=== PATIENT | female | born 1950 | race Caucasian/White ===

== ENCOUNTER 2021-04-27 10:23 | Inpatient (IN) ==
[2021-04-27] MEDS ORDERED: Albuterol 2.5 MG/3 ML NEBULIZER IH ONE (11:06)
[2021-04-27] MEDS ORDERED: methylPREDNISolone 125 MG/2 ML VIAL IVP ONE (11:06)
[2021-04-27] MEDS ORDERED: Ipratropium/Albuterol Neb 3 ML IH ONE (11:06)
[2021-04-27] MEDS ORDERED: 0.9 % Sodium Chloride 1,000 ML IV ONE (11:13)
[2021-04-27] MEDS ORDERED: levoFLOXacin 750 MG/150 ML 750 MG/150 ML BAG IVPB SCH (11:15)
[2021-04-27 11:49] LABS: ABG Base Excess 5 mEq/L (-2 to 3); ABG HCO3 36 mEq/L (21-27); ABG Oxygen Saturation 93 % (95-98); ABG PCO2 83 mmHg (35-45); ABG PH 7.25 pH Units (7.32-7.45); ABG PO2 81 mmHg (85-104); ABG TCO2 39 mEq/L (20-26)
[2021-04-27 11:57] LABS: Basophils # 0.1 K/mcL (0.0-0.2); Basophils % 0.6 %; Eosinophils # 0.2 K/mcL (0.0-0.6); Eosinophils % 2.3 %; Hematocrit 49.3 % (35.3-44.9); Hemoglobin 15.2 g/dL (11.5-15.4); Immature Granulocytes % 0.5 % (0-4); Lymphocytes # 1.5 K/mcL (0.6-4.6); Lymphocytes % 14.6 %; Mean Corpuscular HGB Conc 30.8 g/dL (31.6-35.5); Mean Corpuscular Hemoglobin 27.9 pg (28.0-33.3); Mean Corpuscular Volume 90.6 fL (83.0-100.0); Mean Platelet Volume 10.1 fL (9.4-12.4); Monocytes # 0.8 K/mcL (0.0-1.3); Monocytes % 7.8 %; Neutrophils # 7.9 K/mcL (1.6-8.9); Platelet Count 281 K/mcL (140-400); Red Blood Count 5.44 M/mcL (3.82-4.97); Red Cell Distribution Width 17.2 % (11.5-14.5); Segmented Neutrophils % 74.2 %; White Blood Count 10.6 K/mcL (4.3-11.1)
[2021-04-27] MEDS ORDERED: *HR* Succinylcholine 200 MG/10 ML VIAL IVP ONE (12:08)
[2021-04-27] MEDS ORDERED: *HR* Etomidate 20 MG/10 ML AMPUL IVP ONE (12:08)
[2021-04-27 12:11] LABS: INR 1.1; Prothrombin Time 12.1 Seconds (9.4-12.1)
[2021-04-27 12:13] LABS: Influenza A PCR Negative (Negative); Influenza B PCR Negative (Negative); Resp. Syncytial Virus PCR Negative (Negative); SARS-CoV-2 by PCR (In House) Negative (Negative)
[2021-04-27 12:14] LABS: Activated Partial Thrombo Time 36.9 Seconds (26.0-36.0)
[2021-04-27 12:25] LABS: Troponin I < 0.03 ng/mL (< 0.04)
[2021-04-27 13:04] LABS: Alanine Aminotransferase 11 Units/L (7-52); Albumin 3.7 g/dL (3.5-5.7); Albumin/Globulin Ratio 1.2 (1.1-2.2); Alkaline Phosphatase 75 Units/L (34-104); Aspartate Amino Transferase 12 Units/L (13-39); BUN/Creatinine Ratio 12 (6-26); Bilirubin,Direct 0.1 mg/dL (0.0-0.2); Bilirubin,Indirect 0.2 mg/dL (0.0-1.0); Bilirubin,Total 0.3 mg/dL (0.3-1.0); Blood Urea Nitrogen 18 mg/dL (8-23); Calcium 8.9 mg/dL (8.6-10.3); Carbon Dioxide 33 mEq/L (23-29); Chloride 90 mEq/L (98-107); Glucose 142 mg/dL (70-105); Osmolality,Calculated 282 (280-300); Potassium 3.7 mEq/L (3.5-5.1); Sodium 134 mEq/L (136-145); Total Protein 6.7 g/dL (6.4-8.9); eGFR For African Americans 43 (> 60); eGFR For Non-African Americans 35 (> 60)
[2021-04-27 13:43] LABS: ABG Base Excess 4 mEq/L (-2 to 3); ABG HCO3 35 mEq/L (21-27); ABG Oxygen Saturation 93 % (95-98); ABG PCO2 88 mmHg (35-45); ABG PH 7.21 pH Units (7.32-7.45); ABG PO2 88 mmHg (85-104); ABG TCO2 38 mEq/L (20-26); Blood Gas VT 300 cc
[2021-04-27 14:39] LABS: ABG Base Excess 7 mEq/L (-2 to 3); ABG HCO3 39 mEq/L (21-27); ABG Oxygen Saturation 88 % (95-98); ABG PCO2 99 mmHg (35-45); ABG PH 7.21 pH Units (7.32-7.45); ABG PO2 70 mmHg (85-104); ABG TCO2 42 mEq/L (20-26)
[2021-04-27] MEDS ORDERED: Albuterol Neb 7.5 MG, Sodium Chloride for inhalation 12 ML IH ONE (14:51)
[2021-04-27] MEDS ORDERED: Furosemide 40 MG/4 ML VIAL IVP ONE (15:57)
[2021-04-27] MEDS: FentaNYL (PF) 1,000 MCG/100 ML IV.SOLN IVC SCH (16:55)
[2021-04-27] MEDS ORDERED: Naloxone 0.4 MG/ML INJ IVP PRN (17:00)
[2021-04-27] MEDS ORDERED: Perflutren Lipid Microsphere 1.3 ML in 0.9 % Sodium Chloride 8.7 ML IVP PRN (17:16)
[2021-04-27] MEDS ORDERED: Dextrose Gel 15 GM/37.5 ML TUBE PO PRN ×2 (18:13)
[2021-04-27] MEDS ORDERED: *HR* Dextrose 50 % in Water (Syg) 50 ML SYRINGE IVP PRN (18:13)
[2021-04-27] MEDS ORDERED: D5% in Water 1,000 ML IVC PRN (18:16)
[2021-04-27] MEDS: Ipratropium/Albuterol Neb 3 ML IH SCH ×2 (20:02→23:57)
[2021-04-27] MEDS: Budesonide/Formoterol 160/4.5 1 PUFF INH IH SCH (20:05)
[2021-04-27] MEDS ORDERED: *HR* Midazolam HCl 2 MG/2 ML VIAL IVP ONE (20:05)
[2021-04-27] MEDS: Dexmedetomidine HCl 400 MCG/100 ML MLS IVC SCH (23:07)
[2021-04-27] MEDS: Artificial Tears SOLN 15 ML BOTTLE BOTH EYES SCH ×2 (23:09→23:24)
[2021-04-27] MEDS: Chlorhexidine Rinse 15 ML MOUTHWASH MM SCH (23:09)
[2021-04-27] MEDS: Pantoprazole 40 MG VIAL IVP SCH (23:09)
[2021-04-27] MEDS: Insulin LISPRO 300 UNITS/3 ML VIAL SUBQ SCH (23:10)
[2021-04-27] MEDS: MethylPREDNISolone 40 MG/ML VIAL IVP SCH (23:10)
[2021-04-27 23:20] LABS: ABG Base Excess 6 mEq/L (-2 to 3); ABG HCO3 36 mEq/L (21-27); ABG Oxygen Saturation 93 % (95-98); ABG PCO2 79 mmHg (35-45); ABG PH 7.27 pH Units (7.32-7.45); ABG PO2 82 mmHg (85-104); ABG TCO2 39 mEq/L (20-26); Blood Gas Modality AF; Blood Gas VT 430 cc
[2021-04-28] MEDS: FentaNYL (PF) 1,000 MCG/100 ML IV.SOLN IVC SCH (02:34)
[2021-04-28 03:02] LABS: ABG Base Excess 7 mEq/L (-2 to 3); ABG HCO3 37 mEq/L (21-27); ABG Oxygen Saturation 100 % (95-98); ABG PCO2 75 mmHg (35-45); ABG PO2 301 mmHg (85-104); ABG TCO2 40 mEq/L (20-26)
[2021-04-28] MEDS: Ipratropium/Albuterol Neb 3 ML IH SCH ×6 (03:50→23:16)
[2021-04-28] MEDS: Artificial Tears SOLN 15 ML BOTTLE BOTH EYES SCH ×5 (04:00→20:01)
[2021-04-28 04:56] LABS: ABG Base Excess 4 mEq/L (-2 to 3); ABG HCO3 32 mEq/L (21-27); ABG Oxygen Saturation 94 % (95-98); ABG PCO2 61 mmHg (35-45); ABG PH 7.33 pH Units (7.32-7.45); ABG PO2 77 mmHg (85-104); ABG TCO2 34 mEq/L (20-26); Blood Gas Modality ASSIST CONTROL; Blood Gas VT 430 cc
[2021-04-28 05:08] LABS: Basophils % 0.1 %; Hematocrit 42.2 % (35.3-44.9); Hemoglobin 13.2 g/dL (11.5-15.4); Immature Granulocytes % 0.7 % (0-4); Lymphocytes # 0.9 K/mcL (0.6-4.6); Lymphocytes % 11.5 %; Mean Corpuscular HGB Conc 31.3 g/dL (31.6-35.5); Mean Corpuscular Hemoglobin 27.6 pg (28.0-33.3); Mean Corpuscular Volume 88.1 fL (83.0-100.0); Mean Platelet Volume 10.3 fL (9.4-12.4); Monocytes # 0.3 K/mcL (0.0-1.3); Monocytes % 3.2 %; Neutrophils # 6.8 K/mcL (1.6-8.9); Platelet Count 287 K/mcL (140-400); Red Blood Count 4.79 M/mcL (3.82-4.97); Red Cell Distribution Width 17.2 % (11.5-14.5); Segmented Neutrophils % 84.5 %
[2021-04-28 05:10] LABS: INR 1.1; Prothrombin Time 12.8 Seconds (9.4-12.1)
[2021-04-28 05:24] LABS: Albumin 3.3 g/dL (3.5-5.7); Albumin/Globulin Ratio 1.1 (1.1-2.2); Bilirubin,Total 0.3 mg/dL (0.3-1.0); Calcium 7.9 mg/dL (8.6-10.3); Globulin 2.9 g/dL (2.4-3.5); Phosphorous 5.9 mg/dL (2.7-4.5); Potassium 4.3 mEq/L (3.5-5.1); Total Protein 6.2 g/dL (6.4-8.9)
[2021-04-28] MEDS ORDERED: *HR* Enoxaparin 40 MG/0.4 ML SYRINGE SQ SCH (06:00)
[2021-04-28] MEDS: Insulin LISPRO 300 UNITS/3 ML VIAL SUBQ SCH ×3 (06:54→16:12)
[2021-04-28] MEDS: MethylPREDNISolone 40 MG/ML VIAL IVP SCH ×2 (07:31→16:03)
[2021-04-28] MEDS: Pantoprazole 40 MG VIAL IVP SCH (07:31)
[2021-04-28] MEDS: Chlorhexidine Rinse 15 ML MOUTHWASH MM SCH ×2 (07:31→20:00)
[2021-04-28] MEDS: Budesonide/Formoterol 160/4.5 1 PUFF INH IH SCH ×2 (08:13→20:29)
[2021-04-28] MEDS ORDERED: Furosemide 40 MG/4 ML VIAL IVP SCH (09:00)
[2021-04-28] MEDS: Dexmedetomidine HCl 400 MCG/100 ML MLS IVC SCH ×2 (10:06→21:26)
[2021-04-28] MEDS: Calcium Gluconate 1gm/50mL 1 GM/50 ML BAG IVPB SCH ×3 (17:21→20:01)
[2021-04-28] MEDS ORDERED: Nicotine 21 MG PATCH.TD24 TD SCH (21:15)
[2021-04-28] MEDS: *HR* Heparin 5,000 UNIT/ML VIAL SQ SCH (21:34)
[2021-04-29] MEDS: MethylPREDNISolone 40 MG/ML VIAL IVP SCH ×2 (00:02→16:56)
[2021-04-29] MEDS: Artificial Tears SOLN 15 ML BOTTLE BOTH EYES SCH ×2 (00:12→03:22)
[2021-04-29] MEDS: Insulin LISPRO 300 UNITS/3 ML VIAL SUBQ SCH ×4 (03:19→19:13)
[2021-04-29] MEDS: Ipratropium/Albuterol Neb 3 ML IH SCH ×5 (03:36→23:43)
[2021-04-29 04:25] LABS: Basophils % 0.1 %; Eosinophils % 0.1 %; Hematocrit 40.3 % (35.3-44.9); Hemoglobin 13.1 g/dL (11.5-15.4); Immature Granulocytes % 0.5 % (0-4); Lymphocytes % 10.2 %; Mean Corpuscular HGB Conc 32.5 g/dL (31.6-35.5); Mean Corpuscular Hemoglobin 28.4 pg (28.0-33.3); Mean Corpuscular Volume 87.2 fL (83.0-100.0); Monocytes # 0.4 K/mcL (0.0-1.3); Monocytes % 3.8 %; Neutrophils # 8.2 K/mcL (1.6-8.9); Platelet Count 314 K/mcL (140-400); Red Blood Count 4.62 M/mcL (3.82-4.97); Red Cell Distribution Width 17.3 % (11.5-14.5); Segmented Neutrophils % 85.3 %; White Blood Count 9.6 K/mcL (4.3-11.1)
[2021-04-29 04:32] LABS: VBG Ionized Calcium 1.14 mmol/L (1.15-1.35)
[2021-04-29] MEDS: *HR* Heparin 5,000 UNIT/ML VIAL SQ SCH ×3 (05:33→20:07)
[2021-04-29 05:56] LABS: Albumin 3.4 g/dL (3.5-5.7); Bilirubin,Total 0.3 mg/dL (0.3-1.0); Calcium 8.8 mg/dL (8.6-10.3); Magnesium 2.1 mg/dL (1.6-2.6); Potassium 4.2 mEq/L (3.5-5.1)
[2021-04-29] MEDS ORDERED: *HR* Enoxaparin 30 MG/0.3 ML SYRINGE SQ SCH (06:00)
[2021-04-29 06:13] LABS: Albumin/Globulin Ratio 1.2 (1.1-2.2); Globulin 2.8 g/dL (2.4-3.5); Total Protein 6.2 g/dL (6.4-8.9)
[2021-04-29] MEDS ORDERED: Perflutren Lipid Microsphere 1.3 ML in 0.9 % Sodium Chloride 8.7 ML IVP PRN ×2 (06:41→09:43)
[2021-04-29] MEDS ORDERED: D5% in Water 1,000 ML IVC PRN ×2 (06:41→09:43)
[2021-04-29] MEDS ORDERED: *HR* Dextrose 50 % in Water (Syg) 50 ML SYRINGE IVP PRN ×2 (06:41→09:43)
[2021-04-29] MEDS ORDERED: Dextrose Gel 15 GM/37.5 ML TUBE PO PRN ×4 (06:41→09:43)
[2021-04-29] MEDS ORDERED: Naloxone 0.4 MG/ML INJ IVP PRN ×2 (06:41→09:43)
[2021-04-29] MEDS ORDERED: MethylPREDNISolone 40 MG/ML VIAL IVP SCH (08:00)
[2021-04-29] MEDS ORDERED: Ipratropium/Albuterol Neb 3 ML IH SCH (08:00)
[2021-04-29] MEDS ORDERED: Pantoprazole 40 MG VIAL IVP SCH (09:00)
[2021-04-29] MEDS ORDERED: levoFLOXacin 750 MG/150 ML 750 MG/150 ML BAG IVPB SCH (09:00)
[2021-04-29] MEDS ORDERED: Budesonide/Formoterol 160/4.5 1 PUFF INH IH SCH (10:00)
[2021-04-29] MEDS: Budesonide/Formoterol 160/4.5 1 PUFF INH IH SCH ×2 (10:20→20:33)
[2021-04-29] MEDS ORDERED: Insulin LISPRO 300 UNITS/3 ML VIAL SUBQ SCH (12:00)
[2021-04-29] MEDS ORDERED: *HR* Heparin 5,000 UNIT/ML VIAL SQ SCH (14:00)
[2021-04-29] MEDS ORDERED: NON-FORMULARY MEDICATION 1 EACH EACH (Losartan Potassium [Cozaar] 100 MG Tablet) PO SCH (16:25)
[2021-04-29] MEDS ORDERED: Pregabalin 75 MG CAPSULE PO ONE (16:30)
[2021-04-29] MEDS ORDERED: amLODIPine 5 MG TABLET PO SCH (16:30)
[2021-04-29] MEDS: amLODIPine 5 MG TABLET PO SCH (16:56)
[2021-04-29] MEDS: Nicotine 21 MG PATCH.TD24 TD SCH (20:02)
[2021-04-29] MEDS: Pregabalin 75 MG CAPSULE PO SCH (20:02)
[2021-04-29] MEDS ORDERED: Nicotine 21 MG PATCH.TD24 TD SCH (21:00)
[2021-04-30] MEDS: MethylPREDNISolone 40 MG/ML VIAL IVP SCH ×3 (00:10→18:31)
[2021-04-30] MEDS: Insulin LISPRO 300 UNITS/3 ML VIAL SUBQ SCH ×5 (00:12→23:54)
[2021-04-30 00:52] LABS: Basophils % 0.3 %; Eosinophils % 0.1 %; Hematocrit 43.1 % (35.3-44.9); Hemoglobin 13.9 g/dL (11.5-15.4); Immature Granulocytes % 0.5 % (0-4); Lymphocytes # 2.4 K/mcL (0.6-4.6); Lymphocytes % 21.7 %; Mean Corpuscular HGB Conc 32.3 g/dL (31.6-35.5); Mean Corpuscular Volume 86.7 fL (83.0-100.0); Mean Platelet Volume 10.1 fL (9.4-12.4); Monocytes % 8.9 %; Neutrophils # 7.6 K/mcL (1.6-8.9); Platelet Count 349 K/mcL (140-400); Red Blood Count 4.97 M/mcL (3.82-4.97); Red Cell Distribution Width 17.1 % (11.5-14.5); Segmented Neutrophils % 68.5 %
[2021-04-30 00:54] LABS: VBG Ionized Calcium 1.09 mmol/L (1.15-1.35)
[2021-04-30 01:15] LABS: Alanine Aminotransferase 15 Units/L (7-52); Albumin 3.4 g/dL (3.5-5.7); Albumin/Globulin Ratio 1.1 (1.1-2.2); Alkaline Phosphatase 60 Units/L (34-104); Aspartate Amino Transferase 20 Units/L (13-39); BUN/Creatinine Ratio 48 (6-26); Bilirubin,Total 0.4 mg/dL (0.3-1.0); Blood Urea Nitrogen 36 mg/dL (8-23); Calcium 8.9 mg/dL (8.6-10.3); Carbon Dioxide 34 mEq/L (23-29); Chloride 90 mEq/L (98-107); Globulin 3.1 g/dL (2.4-3.5); Glucose 127 mg/dL (70-105); Magnesium 1.7 mg/dL (1.6-2.6); Osmolality,Calculated 282 (280-300); Phosphorous 2.8 mg/dL (2.7-4.5); Potassium 4.6 mEq/L (3.5-5.1); Sodium 131 mEq/L (136-145); Total Protein 6.5 g/dL (6.4-8.9); eGFR For African Americans > 60 (> 60); eGFR For Non-African Americans > 60 (> 60)
[2021-04-30] MEDS: Ipratropium/Albuterol Neb 3 ML IH SCH ×2 (04:03→07:38)
[2021-04-30] MEDS: *HR* Heparin 5,000 UNIT/ML VIAL SQ SCH ×3 (05:29→20:46)
[2021-04-30] MEDS: Budesonide/Formoterol 160/4.5 1 PUFF INH IH SCH ×2 (07:38→20:30)
[2021-04-30] MEDS: Pantoprazole 40 MG VIAL IVP SCH (08:09)
[2021-04-30] MEDS: amLODIPine 5 MG TABLET PO SCH (08:09)
[2021-04-30] MEDS: Pregabalin 75 MG CAPSULE PO SCH ×3 (08:09→20:46)
[2021-04-30] MEDS ORDERED: Metoprolol XL (24 HR) Succ 50 MG TAB.ER.24H PO SCH (10:15)
[2021-04-30] MEDS: polyethylene glycoL 3350 17 GM POWD.PACK PO SCH (11:13)
[2021-04-30] MEDS: risperiDONE 1 MG TABLET PO SCH (11:14)
[2021-04-30] MEDS: Venlafaxine XR (24 HR) 150 MG CAP.ER.24H PO SCH (11:14)
[2021-04-30] MEDS: rOPINIRole 0.25 MG TABLET PO SCH (11:15)
[2021-04-30] MEDS: Furosemide 20 MG TABLET PO SCH (11:15)
[2021-04-30] MEDS: Aspirin 81 MG TAB.CHEW PO SCH (11:15)
[2021-04-30] MEDS: Levalbuterol Neb 1.25 MG/3 ML IH SCH (20:30)
[2021-04-30] MEDS: Nicotine 21 MG PATCH.TD24 TD SCH (20:44)
[2021-05-01 02:36] LABS: Basophils % 0.2 %; Eosinophils % 0.3 %; Hematocrit 44.4 % (35.3-44.9); Hemoglobin 14.8 g/dL (11.5-15.4); Immature Granulocytes % 0.8 % (0-4); Lymphocytes # 1.5 K/mcL (0.6-4.6); Mean Corpuscular HGB Conc 33.3 g/dL (31.6-35.5); Mean Corpuscular Hemoglobin 28.8 pg (28.0-33.3); Mean Corpuscular Volume 86.5 fL (83.0-100.0); Mean Platelet Volume 10.4 fL (9.4-12.4); Monocytes # 0.8 K/mcL (0.0-1.3); Neutrophils # 7.1 K/mcL (1.6-8.9); Platelet Count 397 K/mcL (140-400); Red Blood Count 5.13 M/mcL (3.82-4.97); Red Cell Distribution Width 16.7 % (11.5-14.5); Segmented Neutrophils % 74.7 %; White Blood Count 9.5 K/mcL (4.3-11.1)
[2021-05-01 02:44] LABS: VBG Ionized Calcium 1.18 mmol/L (1.15-1.35)
[2021-05-01 03:01] LABS: Alanine Aminotransferase 16 Units/L (7-52); Albumin 3.7 g/dL (3.5-5.7); Albumin/Globulin Ratio 1.2 (1.1-2.2); Alkaline Phosphatase 64 Units/L (34-104); Aspartate Amino Transferase 16 Units/L (13-39); BUN/Creatinine Ratio 38 (6-26); Bilirubin,Total 0.4 mg/dL (0.3-1.0); Blood Urea Nitrogen 27 mg/dL (8-23); Calcium 9.4 mg/dL (8.6-10.3); Carbon Dioxide 36 mEq/L (23-29); Chloride 87 mEq/L (98-107); Glucose 221 mg/dL (70-105); Magnesium 1.3 mg/dL (1.6-2.6); Osmolality,Calculated 280 (280-300); Phosphorous 2.5 mg/dL (2.7-4.5); Potassium 4.9 mEq/L (3.5-5.1); Sodium 129 mEq/L (136-145); Total Protein 6.7 g/dL (6.4-8.9); eGFR For African Americans > 60 (> 60); eGFR For Non-African Americans > 60 (> 60)
[2021-05-01] MEDS: *HR* Heparin 5,000 UNIT/ML VIAL SQ SCH ×3 (06:37→21:34)
[2021-05-01] MEDS: MethylPREDNISolone 40 MG/ML VIAL IVP SCH ×2 (06:37→16:33)
[2021-05-01] MEDS: Insulin LISPRO 300 UNITS/3 ML VIAL SUBQ SCH ×4 (06:38→23:30)
[2021-05-01] MEDS: polyethylene glycoL 3350 17 GM POWD.PACK PO SCH (08:23)
[2021-05-01] MEDS: rOPINIRole 0.25 MG TABLET PO SCH (08:25)
[2021-05-01] MEDS: Venlafaxine XR (24 HR) 150 MG CAP.ER.24H PO SCH (08:25)
[2021-05-01] MEDS: amLODIPine 5 MG TABLET PO SCH (08:25)
[2021-05-01] MEDS: Metoprolol XL (24 HR) Succ 50 MG TAB.ER.24H PO SCH (08:25)
[2021-05-01] MEDS: Pantoprazole 40 MG VIAL IVP SCH (08:25)
[2021-05-01] MEDS: Aspirin 81 MG TAB.CHEW PO SCH (08:26)
[2021-05-01] MEDS: Furosemide 20 MG TABLET PO SCH (08:26)
[2021-05-01] MEDS: risperiDONE 1 MG TABLET PO SCH (08:26)
[2021-05-01] MEDS: Pregabalin 75 MG CAPSULE PO SCH ×3 (08:26→21:34)
[2021-05-01] MEDS ORDERED: hydroCHLOROthiazide 25 MG TABLET PO SCH (09:00)
[2021-05-01] MEDS: Levalbuterol Neb 1.25 MG/3 ML IH SCH ×2 (10:28→19:54)
[2021-05-01] MEDS: Budesonide/Formoterol 160/4.5 1 PUFF INH IH SCH ×2 (10:29→19:54)
[2021-05-01] MEDS: Nicotine 21 MG PATCH.TD24 TD SCH (21:34)
[2021-05-02] MEDS: MethylPREDNISolone 40 MG/ML VIAL IVP SCH (05:09)
[2021-05-02] MEDS: *HR* Heparin 5,000 UNIT/ML VIAL SQ SCH ×3 (05:09→20:46)
[2021-05-02 06:43] LABS: Basophils % 0.3 %; Eosinophils % 0.3 %; Hematocrit 44.3 % (35.3-44.9); Hemoglobin 14.5 g/dL (11.5-15.4); Immature Granulocytes % 1.1 % (0-4); Lymphocytes # 2.3 K/mcL (0.6-4.6); Lymphocytes % 20.2 %; Mean Corpuscular HGB Conc 32.7 g/dL (31.6-35.5); Mean Corpuscular Hemoglobin 28.5 pg (28.0-33.3); Mean Corpuscular Volume 87.2 fL (83.0-100.0); Mean Platelet Volume 10.1 fL (9.4-12.4); Monocytes # 0.8 K/mcL (0.0-1.3); Neutrophils # 8.2 K/mcL (1.6-8.9); Platelet Count 374 K/mcL (140-400); Red Blood Count 5.08 M/mcL (3.82-4.97); Red Cell Distribution Width 16.6 % (11.5-14.5); Segmented Neutrophils % 71.1 %; White Blood Count 11.5 K/mcL (4.3-11.1)
[2021-05-02] MEDS: Insulin LISPRO 300 UNITS/3 ML VIAL SUBQ SCH ×4 (07:18→20:58)
[2021-05-02 07:22] LABS: VBG Ionized Calcium 1.16 mmol/L (1.15-1.35)
[2021-05-02] MEDS: Pantoprazole 40 MG VIAL IVP SCH (07:35)
[2021-05-02] MEDS: Venlafaxine XR (24 HR) 150 MG CAP.ER.24H PO SCH (07:35)
[2021-05-02] MEDS: polyethylene glycoL 3350 17 GM POWD.PACK PO SCH (07:35)
[2021-05-02] MEDS: Furosemide 20 MG TABLET PO SCH (07:36)
[2021-05-02] MEDS: Aspirin 81 MG TAB.CHEW PO SCH (07:36)
[2021-05-02] MEDS: rOPINIRole 0.25 MG TABLET PO SCH (07:36)
[2021-05-02] MEDS: amLODIPine 5 MG TABLET PO SCH (07:36)
[2021-05-02] MEDS: Metoprolol XL (24 HR) Succ 50 MG TAB.ER.24H PO SCH (07:37)
[2021-05-02] MEDS: risperiDONE 1 MG TABLET PO SCH (07:37)
[2021-05-02] MEDS: Pregabalin 75 MG CAPSULE PO SCH ×3 (07:37→20:45)
[2021-05-02] MEDS: Budesonide/Formoterol 160/4.5 1 PUFF INH IH SCH ×2 (07:39→22:37)
[2021-05-02] MEDS: Levalbuterol Neb 1.25 MG/3 ML IH SCH ×2 (07:39→22:37)
[2021-05-02 11:35] LABS: Alanine Aminotransferase 20 Units/L (7-52); Albumin 3.5 g/dL (3.5-5.7); Albumin/Globulin Ratio 1.3 (1.1-2.2); Alkaline Phosphatase 59 Units/L (34-104); Aspartate Amino Transferase 20 Units/L (13-39); BUN/Creatinine Ratio 40 (6-26); Bilirubin,Total 0.5 mg/dL (0.3-1.0); Blood Urea Nitrogen 25 mg/dL (8-23); Carbon Dioxide 33 mEq/L (23-29); Chloride 92 mEq/L (98-107); Globulin 2.8 g/dL (2.4-3.5); Glucose 111 mg/dL (70-105); Magnesium 1.6 mg/dL (1.6-2.6); Osmolality,Calculated 277 (280-300); Phosphorous 4.3 mg/dL (2.7-4.5); Potassium 4.8 mEq/L (3.5-5.1); Sodium 131 mEq/L (136-145); Total Protein 6.3 g/dL (6.4-8.9); eGFR For African Americans > 60 (> 60); eGFR For Non-African Americans > 60 (> 60)
[2021-05-02] MEDS: Nicotine 21 MG PATCH.TD24 TD SCH (20:45)
[2021-05-02] MEDS: Insulin DETEMIR 100 UNIT/ML X5UNITS SUBQ SCH (20:50)
[2021-05-03] MEDS: *HR* Heparin 5,000 UNIT/ML VIAL SQ SCH ×3 (04:55→21:08)
[2021-05-03] MEDS: Insulin LISPRO 300 UNITS/3 ML VIAL SUBQ SCH ×4 (07:17→21:06)
[2021-05-03] MEDS: Budesonide/Formoterol 160/4.5 1 PUFF INH IH SCH ×2 (07:33→20:33)
[2021-05-03] MEDS: Levalbuterol Neb 1.25 MG/3 ML IH SCH ×2 (07:33→20:32)
[2021-05-03] MEDS: predniSONE 20 MG TABLET PO SCH (08:41)
[2021-05-03] MEDS: Metoprolol XL (24 HR) Succ 50 MG TAB.ER.24H PO SCH (08:41)
[2021-05-03] MEDS: amLODIPine 5 MG TABLET PO SCH (08:41)
[2021-05-03] MEDS: Venlafaxine XR (24 HR) 150 MG CAP.ER.24H PO SCH (08:41)
[2021-05-03] MEDS: rOPINIRole 0.25 MG TABLET PO SCH (08:41)
[2021-05-03] MEDS: Furosemide 20 MG TABLET PO SCH (08:41)
[2021-05-03] MEDS: Aspirin 81 MG TAB.CHEW PO SCH (08:41)
[2021-05-03] MEDS: Pregabalin 75 MG CAPSULE PO SCH ×3 (08:41→21:08)
[2021-05-03] MEDS: risperiDONE 1 MG TABLET PO SCH (08:41)
[2021-05-03] MEDS: polyethylene glycoL 3350 17 GM POWD.PACK PO SCH (08:42)
[2021-05-03] MEDS: Pantoprazole 40 MG VIAL IVP SCH (08:42)
[2021-05-03] MEDS: Insulin DETEMIR 100 UNIT/ML X5UNITS SUBQ SCH ×2 (08:45→21:07)
[2021-05-03] MEDS: Nicotine 21 MG PATCH.TD24 TD SCH (21:07)
[2021-05-04] MEDS: *HR* Heparin 5,000 UNIT/ML VIAL SQ SCH ×3 (05:49→21:08)
[2021-05-04] MEDS: Budesonide/Formoterol 160/4.5 1 PUFF INH IH SCH ×2 (07:38→20:30)
[2021-05-04] MEDS: Levalbuterol Neb 1.25 MG/3 ML IH SCH ×2 (07:38→20:31)
[2021-05-04] MEDS: polyethylene glycoL 3350 17 GM POWD.PACK PO SCH (09:15)
[2021-05-04] MEDS: Insulin DETEMIR 100 UNIT/ML X5UNITS SUBQ SCH ×2 (09:16→21:10)
[2021-05-04] MEDS: rOPINIRole 0.25 MG TABLET PO SCH (09:16)
[2021-05-04] MEDS: Furosemide 20 MG TABLET PO SCH (09:16)
[2021-05-04] MEDS: amLODIPine 5 MG TABLET PO SCH (09:17)
[2021-05-04] MEDS: risperiDONE 1 MG TABLET PO SCH (09:17)
[2021-05-04] MEDS: Metoprolol XL (24 HR) Succ 50 MG TAB.ER.24H PO SCH (09:17)
[2021-05-04] MEDS: Venlafaxine XR (24 HR) 150 MG CAP.ER.24H PO SCH (09:17)
[2021-05-04] MEDS: predniSONE 20 MG TABLET PO SCH (09:18)
[2021-05-04] MEDS: Aspirin 81 MG TAB.CHEW PO SCH (09:18)
[2021-05-04] MEDS: Pregabalin 75 MG CAPSULE PO SCH ×3 (09:18→21:10)
[2021-05-04] MEDS: Insulin LISPRO 300 UNITS/3 ML VIAL SUBQ SCH ×4 (09:18→21:08)
[2021-05-04 13:06] LABS: Adenovirus Not Detected (Not Detect); Bordetella Pertussis Not Detected (Not Detect); Chlamydophila pneumoniae Not Detected (Not Detect); Coronavirus 229E Not Detected (Not Detect); Coronavirus HKU1 Not Detected (Not Detect); Coronavirus NL63 Not Detected (Not Detect); Coronavirus OC43 DETECTED (Not Detect); Human Metapneumovirus Not Detected (Not Detect); Human Rhinovirus/Enterovirus Not Detected (Not Detect); Influenza A Subtype 2009 H1 Not Detected (Not Detect); Influenza B Not Detected (Not Detect); Mycoplasma pneumoniae Not Detected (Not Detect); Parainfluenza Virus 1 Not Detected (Not Detect); Parainfluenza Virus 2 Not Detected (Not Detect); Parainfluenza Virus 3 Not Detected (Not Detect); Parainfluenza Virus 4 Not Detected (Not Detect); Respiratory Syncytial Virus Not Detected (Not Detect); SARS-CoV-2 Not Detected (Not Detect)
[2021-05-04] MEDS: Nicotine 21 MG PATCH.TD24 TD SCH (21:09)
[2021-05-05] MEDS: *HR* Heparin 5,000 UNIT/ML VIAL SQ SCH ×2 (06:20→12:30)
[2021-05-05] MEDS: Budesonide/Formoterol 160/4.5 1 PUFF INH IH SCH (07:24)
[2021-05-05] MEDS: Levalbuterol Neb 1.25 MG/3 ML IH SCH (07:24)
[2021-05-05] MEDS: Insulin LISPRO 300 UNITS/3 ML VIAL SUBQ SCH ×2 (09:14→12:30)
[2021-05-05] MEDS: Aspirin 81 MG TAB.CHEW PO SCH (09:23)
[2021-05-05] MEDS: amLODIPine 5 MG TABLET PO SCH (09:23)
[2021-05-05] MEDS: Pregabalin 75 MG CAPSULE PO SCH (09:23)
[2021-05-05] MEDS: Furosemide 20 MG TABLET PO SCH (09:23)
[2021-05-05] MEDS: rOPINIRole 0.25 MG TABLET PO SCH (09:23)
[2021-05-05] MEDS: predniSONE 20 MG TABLET PO SCH (09:24)
[2021-05-05] MEDS: Metoprolol XL (24 HR) Succ 50 MG TAB.ER.24H PO SCH (09:24)
[2021-05-05] MEDS: Venlafaxine XR (24 HR) 150 MG CAP.ER.24H PO SCH (09:24)
[2021-05-05] MEDS: risperiDONE 1 MG TABLET PO SCH (09:24)
[2021-05-05] MEDS: polyethylene glycoL 3350 17 GM POWD.PACK PO SCH (09:24)
[2021-05-05] MEDS: Insulin DETEMIR 100 UNIT/ML X5UNITS SUBQ SCH (09:24)
[2021-05-05 11:37] VITALS: BP 129/79; PULSE 78; TEMP 98.2; O2SAT 93
== END 2021-05-05 16:19 | DRG 208 ==
LOC: EMEROOARM 10:23 → ICNU 20:58 → SUATTDRO 20:58 → ICNU 21:54 → 2NNU 04-29 09:36 → 2ANU 05-01 12:47
PROVIDERS: ADMIT Internal Medicine; ATTEND Pharmacist